=== PATIENT | male | born 1960 | race Caucasian/White ===

== ENCOUNTER 2024-12-12 11:41 | Inpatient (IN) | payer MEDICAID ==
[~2024-12-12] VITALS: Ht 182.8 cm; Wt 103.0 kg
[2024-12-12] MEDS ORDERED: IOHEXOL 350 MG/ML 100 ML VIAL IV ONE ×2 (12:17→12:40)
[2024-12-12] MEDS ORDERED: SODIUM CHLORIDE 0.9% 100 ML IV ONE (12:17)
[2024-12-12 12:21] LABS: BASO % 0.4 % (0.0-1.0); EOS # 0.1 10*3/uL (0.0-0.4); EOS % 1.9 % (1.0-4.0); HEMATOCRIT 39.4 % (42.0-52.0); MEAN CELL VOLUME 90.6 fl (80.0-94.0); MEAN CORPUSCULAR HGB 30.1 pg (27.0-31.0); MEAN CORPUSCULAR HGB CONC 33.2 g/dl (33.0-37.0); MEAN PLATELET VOLUME 10.1 fl (9.6-12.3); MONO # 0.6 10*3/uL (0.1-1.0); MONO % 8.5 % (3.0-9.0); NEUT # 3.9 10*3/uL (2.3-7.9); NEUT % 53.6 % (47.0-73.0); PLATELET COUNT AUTOMATED 138 10*3/uL (130-400); RED BLOOD COUNT 4.35 10*6/uL (4.50-5.90); RED CELL DISTRI WIDTH 13.1 % (0-14.5); WHITE BLOOD COUNT 7.3 10*3/uL (4.8-10.8)
[2024-12-12 12:26] VITALS: BP 154/87
[2024-12-12 12:30] LABS: ACT PARTIAL THROMBO TIME 25.4 SECONDS (20.0-32.1)
[2024-12-12] MEDS ORDERED: SODIUM CHLORIDE 0.9% 100 ML BAG IV ONE (12:40)
[2024-12-12 12:41] LABS: ALKALINE PHOSPHATASE 110 U/L (46-116); BUN 17 mg/dl (9-23); CHLORIDE 108 mmol/L (98-107); POTASSIUM 3.7 mmol/L (3.4-5.1); SGPT/ALT 28 U/L (5-49); TOTAL PROTEIN 6.1 gm/dL (6.0-8.0)
[2024-12-12 12:59] LABS: BILIRUBIN Negative (Negative); BLOOD Negative (Negative); CLARITY Clear (Clear); COLOR Yellow (Yellow); GLUCOSE Negative (Negative); KETONE Negative (Negative); LEUKO ESTERASE Trace (Negative); NITRITE Negative (Negative); PH 6.5 (4.5-8.0); SPECIFIC GRAVITY >= 1.030 (1.001-1.030)
[2024-12-12 13:06] LABS: URINE AMPHETAMINES Negative (1000ng/ml); URINE BARBITURATES Negative (200ng/ml); URINE BENZODIAZEPINES Negative (200ng/ml); URINE CANNABINOIDS (THC) Negative (50ng/ml); URINE COCAINE Positive (300ng/ml); URINE METHADONE Negative (300ng/ml); URINE OPIATES Negative (300ng/ml); URINE PHENCYCLIDINE Negative (25ng/ml)
[2024-12-12 13:15] LABS: BACTERIA TRACE
[2024-12-12] MEDS ORDERED: Magnesium Hydroxide 30 ML UDC PO PRN (15:25)
[2024-12-12] MEDS ORDERED: BISACODYL 5 MG TAB PO PRN (15:25)
[2024-12-12] MEDS ORDERED: Ondansetron Hydrochloride 4 MG/2 ML VIAL IV PRN (15:25)
[2024-12-12 15:55] VITALS: BP 150/101
[2024-12-12] MEDS ORDERED: ATORVASTATIN CALCIUM 80 MG TAB PO SCH (18:00)
[2024-12-12 19:26] VITALS: BP 187/73
[2024-12-12 20:00] VITALS: BP 139/83
[2024-12-12 21:00] VITALS: BP 139/83
[2024-12-13] VITALS: BP 137/83
[2024-12-13] MEDS ORDERED: ACETAMINOPHEN 325 MG TAB PO PRN (05:30)
[2024-12-13 06:12] LABS: BUN 12 mg/dl (9-23); CHLORIDE 107 mmol/L (98-107); CHOLESTEROL 184 mg/dL (<200); FREE T4 1.34 ng/dl (0.89-1.76); LDL CHOLESTEROL 119 mg/dL (9-159); POTASSIUM 3.6 mmol/L (3.4-5.1); TRIGLYCERIDES 153 mg/dl (<150)
[2024-12-13 06:24] LABS: MEAN CELL VOLUME 90.7 fl (80.0-94.0); MEAN CORPUSCULAR HGB 29.7 pg (27.0-31.0); MEAN CORPUSCULAR HGB CONC 32.8 g/dl (33.0-37.0); MEAN PLATELET VOLUME 11.2 fl (9.6-12.3); PLATELET COUNT AUTOMATED 140 10*3/uL (130-400); RED BLOOD COUNT 5.18 10*6/uL (4.50-5.90); RED CELL DISTRI WIDTH 13.1 % (0-14.5); WHITE BLOOD COUNT 8.4 10*3/uL (4.8-10.8)
[2024-12-13 07:27] LABS: MANUAL DIFF REFLEX YES
[2024-12-13 07:32] LABS: ATYPICAL LYMPHS 1 % (0-0); BASOPHILS 1 % (0-1); TOTAL CELLS COUNTED 100 #CELLS
[2024-12-13 07:33] LABS: PLATELET SUFFICIENCY NORMAL (NORMAL)
[2024-12-13] MEDS ORDERED: Enoxaparin Sodium 40 MG/0.4 ML SYR SC SCH (10:00)
[2024-12-13] MEDS ORDERED: ASPIRIN ENTERIC COATED 81 MG TAB PO SCH (10:00)
== END 2024-12-13 07:46 | disposition left against medical advice (07) | DRG 65 ==
LOC: ED 11:41 → EDHOLD 14:52 → 4E 20:18
PROVIDERS: Internal Medicine; Student in an Organized Health Care Education/Training Program; ADMIT Student in an Organized Health Care Education/Training Program; ATTEND Student in an Organized Health Care Education/Training Program
DX: I63.511 Cerebral infarction due to unspecified occlusion or stenosis of right middle cerebral artery (principal); E44.0 Moderate protein-calorie malnutrition; Z68.30 Body mass index [BMI] 30.0-30.9, adult; J43.9 Emphysema, unspecified; F14.10 Cocaine abuse, uncomplicated; D64.9 Anemia, unspecified; R73.9 Hyperglycemia, unspecified; I10 Essential (primary) hypertension; Z53.29 Procedure and treatment not carried out because of patient's decision for other reasons; F17.210 Nicotine dependence, cigarettes, uncomplicated; Z71.51 Drug abuse counseling and surveillance of drug abuser